=== PATIENT | female | born 1970 | race African-American/Black ===

== ENCOUNTER 2017-04-23 20:43 | Emergency (ER) | payer OTHER ==
--- NOTE | ~2017-04-23 | EKG ---
PATIENT: CHRISTIAN MENDOZA UNIT #: [id number] Ventricular Rate: 56 BPM Atrial Rate: 56 BPM P-R Interval: 146 ms QRS Duration: 70 ms Q-T Interval: 442 ms QTC Calculation(Bezet): 426 ms P [place]: 74 degrees Calculated R [place]: 58 degrees Calculated T [place]: 56 degrees Diagnosis Line: Sinus bradycardia Diagnosis Line: Biatrial enlargement Diagnosis Line: Low voltage QRS Diagnosis Line: Abnormal ECG Diagnosis Line: No previous ECGs available Diagnosis Line: Confirmed by ZINA HENSLEY MD ([id number]) on Diagnosis Line: 04/24/2017 3:03:44 PM INTERPRETING MD: [id number]
[2017-04-23 23:19] LABS: URINE SOURCE CLEAN CATCH
[2017-04-23 23:24] LABS: URINE APPEARANCE CLEAR; URINE BILIRUBIN NEG (NEG); URINE BLOOD NEG (NEG); URINE COLOR YELLOW; URINE GLUCOSE NEG (NEG); URINE KETONE TRACE (NEG); URINE LEUKOCYTE ESTERASE NEG (NEG); URINE NITRATE NEG (NEG); URINE PH 5.5 (5-8); URINE PROTEIN NEG (NEG); URINE SPECIFIC GRAVITY 1.006 (1.003-1.035); URINE UROBILINOGEN 0.2 MG/DL (NEG)
[2017-04-23 23:53] LABS: BASOPHIL% 0.9 % (0-2.5); EOSINOPHIL% 0.7 % (0.0-7.0); HEMATOCRIT 39.4 % (35.0-45.0); LYMPHOCYTE# 1.6 X10e3 (1.0-3.5); LYMPHOCYTE% 41.3 % (17.0-45.0); MEAN CELL VOLUME 94.8 FL (83-96); MEAN CORPUSCULAR HEMOGLOBIN 31.3 PG (28-34); MEAN PLATELET VOLUME 8.1 FL (6.5-11.5); MONOCYTE# 0.6 X10e3 (0-1.0); NEUTROPHIL# 1.7 X10e3 (1.5-7.1); NEUTROPHIL% 43.1 % (40-75); PLATELET COUNT 223 X10e3 (140-420); RED BLOOD COUNT 4.15 X10e (3.90-5.30); RED CELL DISTRIBUTION WIDTH 13.2 % (11.0-15.5)
[2017-04-23 23:56] LABS: DIFF IND NO
[2017-04-24 00:15] LABS: CALCIUM SERUM 8.6 mg/dL (8.4-10.2); CREATININE SERUM 0.8 mg/dL (0.6-1.4); GLOM FILT RATE Estimated 102.6 mL/min (>60); POTASSIUM 3.7 mmol/L (3.5-5.1)
== END 2017-04-24 00:55 | disposition home or self-care (01) ==
LOC: CED 20:43
PROVIDERS: Emergency Medicine
DX: R20.2 Paresthesia of skin (principal); R29.810 Facial weakness
CPT/HCPCS: 36415; 80048; 81003; 84443; 85025; 93005; 99284